=== PATIENT | female | born 1965 | race Caucasian/White ===

== ENCOUNTER 2020-03-27 21:48 | Emergency (ER) | payer MEDICARE, MEDICAID ==
[2020-03-27 22:24] VITALS: BP 149/74
[2020-03-27] MEDS ORDERED: IBUPROFEN 800 MG TABLET PO ONE (23:26)
--- NOTE | 2020-03-27 23:30 | ER Document Report ---
ED General - General Chief Complaint: Wrist Pain Stated Complaint: POSSIBLE BACK AND LEFT WRIST INJURY Time Seen by Provider: 03/27/20 23:20 Notes: Patient presents to the ER for evaluation of left wrist pain and low back pain following a slip and fall that occurred approximately 1 hour prior to arrival. The patient is ambulatory but states it causes increased pain. She denies neck pain. She denies headache or positive loss of consciousness. Nursing notes reviewed and past medical, social, and family histories reviewed and validated. - Related Data Allergies/Adverse Reactions: No Known Allergies Allergy (Unverified 03/27/20 23:16) Past Medical History - General Information source: Patient - Social History Smoking Status: Never Smoker Frequency of alcohol use: None Drug Abuse: None Lives with: Alone Family History: Reviewed & Not Pertinent Patient has homicidal ideation: No - Past Medical History Cardiac Medical History: Reports: None Pulmonary Medical History: Reports: None EENT Medical History: Reports: None Neurological Medical History: Reports: None Endocrine Medical History: Reports: None Renal/ Medical History: Reports: None Malignancy Medical History: Reports: None Musculoskeletal Medical History: Reports None Other: Chronic pain Skin Medical History: Reports None Psychiatric Medical History: Reports: None Traumatic Medical History: Reports: None Infectious Medical History: Reports: None Past Surgical History: Reports: None - Immunizations Immunizations up to date: Yes Hx Diphtheria, Pertussis, Tetanus Vaccination: Yes Review of Systems - Review of Systems Notes: Constitutional: Negative for fever. HENT: Negative for sore throat. Eyes: Negative for visual changes. Cardiovascular: Negative for chest pain. Respiratory: Negative for shortness of breath. Gastrointestinal: Negative for abdominal pain, vomiting or diarrhea. Genitourinary: Negative for dysuria. Musculoskeletal: Positive low back pain. Positive left wrist pain. Skin: Negative for rash. Neurological: Negative for headaches, weakness or numbness. 10 point ROS negative except as marked above and in HPI. Physical Exam - Vital signs Vitals: Temp Pulse Resp BP Pulse Ox 98.8 F 96 20 149/74 H 100 03/27/20 22:22 03/27/20 22:22 03/27/20 22:22 03/27/20 22:22 03/27/20 22:22 - Notes Notes: CONSTITUTIONAL: Well appearing in no acute distress SKIN: Warm, dry, and intact without rash EYES: Extraocular movements are grossly intact, clear conjunctiva HENT: Normocephalic, atraumatic, moist mucus membranes NECK: No obvious swelling, normal range of motion PULMONARY: Normal chest rise and fall, no respiratory distress or stridor CARDIOVASCULAR: Regular rate, distal extremities are warm and well perfused NEUROLOGIC: Normal speech, moves all extremities MUSCULOSKELETAL: Mild tenderness palpation over the radial aspect of the left wrist. There is also mild tenderness palpation over the left paravertebral lumbar muscle. No spinal tenderness noted. PSYCHIATRIC: Normal mood and affect Course - Re-evaluation Re-evalutation: 03/28/20 01:42 Rechecked patient who has responded well to treatment in the ER. Discussed with patient: results, diagnosis, treatment plan, and need for follow-up. Return to the emergency department warnings were given. All questions and concerns were addressed. The plan is agreed with and understood. Patient is stable and ready for discharge. - Vital Signs Vital signs: Temp Pulse Resp BP Pulse Ox 98.8 F 96 20 149/74 H 100 03/27/20 22:22 03/27/20 22:22 03/27/20 22:22 03/27/20 22:22 03/27/20 22:22 - Diagnostic Test Radiology reviewed: Reports reviewed Procedures - Immobilization Left Wrist Time completed: 01:43 Pre-Proc Neuro Vasc Exam: Normal Immobilizer type: Other - Velcro wrist splint Performed by: RN Post-Proc Neuro Vasc Exam: Normal Alignment checked and good: Yes Discharge - Discharge Clinical Impression: Left wrist sprain Qualifiers: Encounter type: initial encounter Qualified Code(s): S63.502A - Unspecified sprain of left wrist, initial encounter Low back pain Qualifiers: Chronicity: acute Back pain laterality: unspecified Sciatica presence: without sciatica Qualified Code(s): M54.5 - Low back pain Condition: Stable Disposition: HOME, SELF-CARE Instructions: Wrist Sprain ([facility]), Low Back Pain ([facility]) Prescriptions: Ibuprofen [Motrin 800 mg Tablet] 800 mg PO Q8HP PRN #20 tab PRN Reason: For Pain
--- NOTE | 2020-03-28 00:15 | RADIOLOGY REPORT (SQ) ---
EXAM DESCRIPTION: XR LUMBAR SPINE ANTEROPOSTERIOR, LATERAL, AND OBLIQUES COMPLETED DATE/TME: 03/27/2020 23:54 CLINICAL HISTORY: 54 years, Female, fall COMPARISON: None. NUMBER OF VIEWS: Five TECHNIQUE: AP, lateral, and spot view of the lumbosacral Junction, and bilateral oblique views of the lumbar spine were obtained. LIMITATIONS: None. FINDINGS: There is no fracture or subluxation. There is no definite pars defect. There is mild multilevel marginal osteophyte formation. There is moderate disc space narrowing at L3-4 and there is mild disc space narrowing at L4-5. There is mild multilevel facet arthropathy. Incidental arterial calcifications are noted. Partial visualization of bilateral hip hardware. IMPRESSION: Multilevel degenerative changes as above. copyright 2010 [employer]- All Rights Reserved
--- NOTE | 2020-03-28 00:18 | RADIOLOGY REPORT (SQ) ---
Left wrist radiographs: 03/27/2020 11:16 PM [facility] TECHNIQUE: AP, lateral, internal and external oblique images of the left wrist were obtained. COMPARISON: None available HISTORY: 54-year-old patient with left wrist pain, fall. FINDINGS: The joint spaces are congruent. There are no findings to suggest an acute fracture or subluxation. The soft tissues are unremarkable. The scapholunate interval is within normal limits. The carpal arcs appear to be intact. IMPRESSION: There are no findings to suggest an acute fracture or subluxation of the left wrist.
== END 2020-03-28 01:58 | disposition home or self-care (01) ==
LOC: ER 21:48
DX: S63.502A Unspecified sprain of left wrist, initial encounter (principal); W01.0XXA Fall on same level from slipping, tripping and stumbling without subsequent striking against object, initial encounter; M47.819 Spondylosis without myelopathy or radiculopathy, site unspecified; M54.5 Low back pain
CPT/HCPCS: 99283; 72110; 73110; A9270